=== PATIENT | female | born 1940 | race Caucasian/White ===

== ENCOUNTER → 2019-09-06 | Outpatient (CLI) | payer MEDICARE ==
[~2019-09-06] MED LIST: ASPI81TA59 PO; CETI10TA24 PO; CYAN500T52 PO; ENAL1TAB5 PO; LUTE1CAP5 PO; METF-550 PO; NEBI10TA3 PO; POLY17PO5 PO
== END | disposition home or self-care (01) ==
LOC: LAB 09:00
PROVIDERS: ATTEND Registered Nurse
DX: Z01.818 Encounter for other preprocedural examination (principal); Z11.59 Encounter for screening for other viral diseases
CPT/HCPCS: 36415; C9803; U0003

== ENCOUNTER → 2019-09-11 | Day surgery (SDC) | payer MEDICARE ==
[~2019-09-11] MED LIST changes: +IPRATRPIUM/ALBUTEROL 0.5/2.5MG 3 ML NEBU. NEB PRN; +IV RINGERS SOLUTION,LACTATED 1,000 ML IV SCH; +MIDAZOLAM HCL PF 2 MG/2 ML VIAL. IV ONE; +ONDANSETRON PF 4 MG/2 ML VIAL. IV PRN; +PROPOFOL 10,000 MCG/ML (20ML) VIAL IV ONE
[2019-09-11 08:20] VITALS: BP 136/66
--- NOTE | 2019-09-12 16:07 | PATHOLOGY ---
[facility] Accession Number: [id number] . 01 Material submitted: . colon - ASCENDING POLYP. Modifiers: ascending . 01 Clinical history: . None provided . 02 Diagnosis: Colon biopsies, ascending colon polyp: - Tubulovillous adenoma, predominantly tubular. LBQ 09/12/2019 1032 Local . 02 Comment: There is no high grade dysplasia or evidence of malignancy. (JPM/db; 09/12/2019) . 02 Electronically signed: . Aureliano Tapia MD, Pathologist NPI- [id number] . 01 Gross description: . The specimen is received in formalin, labeled "Tiffany Jansen, ascending polyp". Received are three segments of pale nettles soft tissue ranging in size from 0.2 to 0.4 cm in maximum dimensions. The specimen is submitted entirely in cassette A1. ([facility]; 09/11/2019) QA/[facility] 09/11/2019 1914 Local . 02 Pathologist provided ICD-10: D12.2 . 02 CPT . 001416 Specimen Comment: A courtesy copy of this report has been sent to [phone], [phone] Specimen Comment: [id number] Specimen Comment: Report sent to / DR GAGE Specimen Comment: A duplicate report has been generated due to demographic updates. Performed at: 01 [facility] [address] [facility] [facility] [address], [place] [id number] MD Remi Mane MD Phone: [phone] Performed at: 02 [facility] [address] [place], [place] [id number] MD Aureliano Tapia MD Phone: [phone]
== END ==
LOC: SURG 06:39
PROVIDERS: ATTEND Emergency Medicine
DX: Z12.11 Encounter for screening for malignant neoplasm of colon (principal); K57.30 Diverticulosis of large intestine without perforation or abscess without bleeding; K56.699 Other intestinal obstruction unspecified as to partial versus complete obstruction; I10 Essential (primary) hypertension; E11.9 Type 2 diabetes mellitus without complications; Z86.010 Personal history of colon polyps; Z98.890 Other specified postprocedural states; Z98.51 Tubal ligation status; Z88.1 Allergy status to other antibiotic agents; Z88.8 Allergy status to other drugs, medicaments and biological substances
CPT/HCPCS: 45380; J2704; J7120; 88305

== ENCOUNTER → 2019-12-27 | Outpatient (CLI) | payer MEDICARE ==
[2019-09-11 08:20] VITALS: BP 136/66
[~2019-12-27] MED LIST changes: -CETI10TA24 PO; +CETI10TA74 PO; -IPRATRPIUM/ALBUTEROL 0.5/2.5MG 3 ML NEBU. NEB PRN; -IV RINGERS SOLUTION,LACTATED 1,000 ML IV SCH; -METF-550 PO; +METF-638 PO; -MIDAZOLAM HCL PF 2 MG/2 ML VIAL. IV ONE; -ONDANSETRON PF 4 MG/2 ML VIAL. IV PRN; -PROPOFOL 10,000 MCG/ML (20ML) VIAL IV ONE
--- NOTE | 2019-12-28 11:31 | RAD ---
EXAM: Bilateral digital screening mammogram with tomosynthesis. HISTORY: 79-year-old female presents for screening mammography. TECHNIQUE: Full-field digital craniocaudal and mediolateral oblique 2D and 3D tomosynthesis images of both breasts are obtained for evaluation. Computer aided detection was applied. COMPARISON: 12/11/2018 and 12/14/2017 BREAST PARENCHYMAL DENSITY: Level A - Mostly fat. FINDINGS: There are small nodular densities within the 9:00 position of the right breast at anterior to mid depth and 3:00 position of the left breast at mid depth which are more conspicuous compared to the prior studies, possibly due to differences in technique. There are few additional areas of nodularity which are stable in appearance. There are few benign calcifications. There is no architectural distortion. IMPRESSION: BI-RADS Category 0: Incomplete. Additional imaging needed. RECOMMENDATION: Further evaluation with a bilateral breast sonogram is recommended to confirm benignity of areas of nodularity described above. If your mammogram demonstrates that you have dense breast tissue, which could hide abnormalities, and if you have other risk factors for breast cancer that have been identified, you might benefit from supplemental screening tests that may be suggested by your ordering physician. Dense breast tissue, in and of itself, is a relatively common condition. This information is not provided to cause undue concern, but rather to raise your awareness and to promote discussion with your physician regarding the presence of other risk factors, in addition to dense breast tissue. A report of your mammography results will be sent to you and your physician. You should contact your physician if you have any questions or concerns regarding this report. Mammography is a sensitive method for finding small breast cancers, but it does not detect them all and is not a substitute for careful clinical examination. A negative mammogram does not negate a clinically suspicious finding and should not result in delay in biopsying a clinically suspicious abnormality. PQRS compliance statement - Patient information was entered into a reminder system with a target due date for the next mammogram. "Our facility is accredited by the [employer] Mammography [employer]." Electronically signed by: Purnima Huff MD (12/28/2019 11:28 AM) [id number]
== END ==
LOC: MAMMO 13:08
PROVIDERS: ATTEND Family Medicine
DX: Z12.31 Encounter for screening mammogram for malignant neoplasm of breast (principal); N64.89 Other specified disorders of breast
CPT/HCPCS: 77063; 77067